=== PATIENT | male | born 1980 | race Two or more races ===

== ENCOUNTER 2021-12-09 04:52 | Emergency (ER) | payer OTHER ==
[~2021-12-09] VITALS: Ht 177.8 cm; Wt 100.0 kg
[2021-12-09] MEDS ORDERED: ONDANSETRON HCL 4 MG TABLET PO ONE (08:00)
[2021-12-09 08:53] VITALS: BP 145/85
== END 2021-12-09 09:48 | disposition home or self-care (01) ==
LOC: EMS 04:53
DX: S02.2XXA Fracture of nasal bones, initial encounter for closed fracture (principal); W18.39XA Other fall on same level, initial encounter; Y93.89 Activity, other specified; Y92.89 Other specified places as the place of occurrence of the external cause; Y99.8 Other external cause status
CPT/HCPCS: 70450; 70486; 99284